=== PATIENT | male | born 1945 | race Caucasian/White ===

== ENCOUNTER 2019-03-25 14:25 | Emergency (ER) | payer MEDICARE, OTHER ==
[2019-03-25] MEDS ORDERED: Sodium Chloride 0.9% 1,000 ML IV SCH (14:45)
--- NOTE | 2019-03-25 14:54 | EDM.PDOC ---
ED HPI GENERAL MEDICAL PROBLEM - General Chief Complaint: General Stated Complaint: found on floor during wellness check Time Seen by Provider: 03/25/19 14:43 Source of Information: Reports: EMS History Limitations: Reports: Altered Mental Status - History of Present Illness INITIAL COMMENTS - FREE TEXT/NARRATIVE: Patient is a 73-year-old who was brought from ambulance apparently he was reported as a missing person says people around him have not seen him for over 2 days he was found in his house laying on the floor unable to move in a very tight space patient was brought in by ambulance complaining of bilateral hip pain he had some skin abrasions on the right hip is to say it lay in the ground with urine patient has follow urine smell Duration: Day(s):, Getting Worse Location: Reports: Head, Lower Extremity, Right Improves with: Reports: Immobilization Worsens with: Reports: Movement Context: Reports: Trauma Associated Symptoms: Reports: Confusion, Weakness - Related Data Allergies Allergy/AdvReac Type Severity Reaction Status Date / Time No Known Allergies Allergy Verified 10/19/16 14:58 ED ROS GENERAL - Review of Systems Review Of Systems: See Below Constitutional: Reports: Weakness HEENT: Reports: No Symptoms Respiratory: Reports: No Symptoms Cardiovascular: Reports: No Symptoms Endocrine: Reports: No Symptoms GI/Abdominal: Reports: No Symptoms : Reports: Incontinence Musculoskeletal: Reports: Leg Pain Skin: Reports: Change in Color (Patient probably down for 3 days he has ecchymosis in the pubic area with right leg swelling and deformity) ED EXAM, GENERAL - Physical Exam Exam: See Below Exam Limited By: Altered Mental Status General Appearance: WD/WN, Lethargic, Mild Distress Eye Exam: Bilateral Eye: PERRL (Pupils about 3 mm) Ears: Normal External Exam, Normal Canal, Hearing Grossly Normal, Normal TMs Nose: Normal Inspection, Normal Mucosa, No Blood Throat/Mouth: Normal Inspection, Normal Lips, Normal Teeth, Normal Gums, Normal Oropharynx, Normal Voice, No Airway Compromise Head: Atraumatic, Normocephalic Neck: Normal Inspection, Supple, Non-Tender, Full Range of Motion (Male) Exam: Scrotal Swelling. No: Normal Inspection (Ecchymosis on the pubic area) Rectal (Males) Exam: Deferred Extremities: Limited Range of Motion (Lower extremities), Other (Right hip skin irritation and sloughing secondary to pressure) Neurological: Disoriented, Memory Loss Recent Events, Other (Right hand drifting right eye weakness and facial weakness) Psychiatric: Normal Mood Skin Exam: Cool, Ecchymosis, Rash Lymphatic: No Adenopathy Course - Orders/Labs/Meds Orders: Active Orders 24 hr Category Date Time Status Hip Min 3V or 4V w Pelvis Bi [CR] Stat Exams 03/25/19 14:39 Ordered CBC WITH AUTO DIFF [HEME] Stat Lab 03/25/19 14:36 Ordered COMPREHENSIVE METABOLIC PN,CMP [CHEM] Stat Lab 03/25/19 14:36 Ordered CREATINE KINASE,CK [CHEM] Stat Lab 03/25/19 14:36 Ordered Sodium Chloride 0.9% [Normal Saline] 1,000 ml Med 03/25/19 14:45 Ordered IV ASDIRECTED Medication Orders Sodium Chloride (Normal Saline) 1,000 mls @ 250 mls/hr IV ASDIRECTED [facility] Meds: Medications Generic Name Dose Route Start Last Admin Trade Name Freq PRN Reason Stop Dose Admin Sodium Chloride 1,000 mls @ 250 mls/hr 03/25/19 14:45 Normal Saline IV ASDIRECTED VÍCTOR Departure - Departure Time of Disposition: 15:51 Disposition: Refer to Observation Condition: Serious Clinical Impression: Fracture, intertrochanteric, right femur, Rhabdomyolysis - Discharge Information *PRESCRIPTION DRUG MONITORING PROGRAM REVIEWED*: No *COPY OF PRESCRIPTION DRUG MONITORING REPORT IN PATIENT RASHMI: No Care Plan Goals: Patient seen in the ER Dr. Anthony and essential called and report given to him about the condition of this patient with rhabdomyolysis he probably was laying down for 3 days confused right facial weakness and drifting of the right side we will go ahead and transfer him to a center. - My Orders Last 24 Hours: My Active Orders 03/25/19 14:36 CBC WITH AUTO DIFF [HEME] Stat COMPREHENSIVE METABOLIC PN,CMP [CHEM] Stat CREATINE KINASE,CK [CHEM] Stat 03/25/19 14:39 Hip Min 3V or 4V w Pelvis Bi [CR] Stat 03/25/19 14:45 Sodium Chloride 0.9% [Normal Saline] 1,000 ml IV ASDIRECTED - Assessment/Plan Last 24 Hours: My Active Orders 03/25/19 14:36 CBC WITH AUTO DIFF [HEME] Stat COMPREHENSIVE METABOLIC PN,CMP [CHEM] Stat CREATINE KINASE,CK [CHEM] Stat 03/25/19 14:39 Hip Min 3V or 4V w Pelvis Bi [CR] Stat 03/25/19 14:45 Sodium Chloride 0.9% [Normal Saline] 1,000 ml IV ASDIRECTED
[2019-03-25 15:21] LABS: CHLORIDE,CL 115 mmol/L (98-107)
[2019-03-25 15:28] LABS: SODIUM,NA 156 mmol/L (136-145)
[2019-03-25 16:10] VITALS: PULSE 81
[2019-03-25 16:11] VITALS: BP 140/87
== END 2019-03-25 16:15 ==
LOC: LL.ED 14:25
DX: S72.141A Displaced intertrochanteric fracture of right femur, initial encounter for closed fracture (principal); T79.6XXA Traumatic ischemia of muscle, initial encounter
CPT/HCPCS: 36415; 51702; 70450; 80053; 81001; 82550; 85025; 96360; 99284; 99285-25; J7030

== ENCOUNTER 2020-12-20 07:18 | Emergency (ER) | payer MEDICARE, OTHER ==
--- NOTE | 2020-12-20 07:33 | EDM.PDOC ---
ED HPI GENERAL MEDICAL PROBLEM - General Chief Complaint: Laceration Stated Complaint: fall, head laceration Time Seen by Provider: 12/20/20 07:30 Source of Information: Reports: Patient, [facility] Records History Limitations: Reports: No Limitations - History of Present Illness INITIAL COMMENTS - FREE TEXT/NARRATIVE: The patient was brought to the emergency room via transport vehicle from [facility] in [place] for evaluation of a right superficial laceration and abrasion after a minor fall at about 5:30 AM this morning. Neurochecks have been stable to this point. Very limited verbal report was provided by the jail, however after review of transfer records the patient appeared to have some mild diaphoresis and dizziness at the time of their initial evaluation. The patient is not certain exactly what happened, however he denies any true syncopal type episode with patient apparently falling after he was getting out of the bed to go to the bathroom this morning. The patient denies any chest pain/pressure, heart flutter, orthostasis, orthopnea, diaphoresis, paresthesias, recent decreased exercise tolerance, or any other anginal-type sym ptoms. No recent history of abdominal pain, heartburn, nausea, diarrhea, melena, gross hematochezia, or any food intolerance, including fatty foods, etc.. He denies any gross hematuria, colic, or the UTI symptoms. The patient also denies any recent fever, cough, wheezing, dyspnea, etc.. No history of recent headaches, visual changes, diplopia, change in mental status, or other change in neurological status. He complains of 12/10 mild right facial discomfort secondary to the above fall. Onset: Today, Sudden Onset Date: 12/20/20 Onset Time: 05:30 Duration: Constant Location: Reports: Face. Denies: Head, Neck, Chest, Abdomen, Back, Pelvis, Upper Extremity, Left, Upper Extremity, Right, Lower Extremity, Left, Lower Extremity, Right, Radiates to Quality: Reports: Ache, Same as Previous Episode Severity: Mild Improves with: Reports: None Worsens with: Reports: None Context: Reports: Trauma (As above). Denies: Sick Contact Associated Symptoms: Reports: Diaphoresis (Per nurses but not at time of arrival). 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: Reports: Other (see below) (None) Right Face/Facial Pain Score (Numeric/FACES): 2 - Related Data Allergies Allergy/AdvReac Type Severity Reaction Status Date / Time No Known Allergies Allergy Verified 12/20/20 07:30 Home Meds: Home Meds Lovastatin 40 mg PO BEDTIME 03/25/19 [History] Pioglitazone [Actos] 30 mg PO DAILY 03/25/19 [History] metFORMIN [Glucophage XR] 1,000 mg PO BIDMEALS 03/25/19 [History] Acetaminophen [Acetaminophen Extra Strength] 500 mg PO ,12/20/20 [History] Aspirin [Aspirin EC] 81 mg PO 79912/20/20 [History] Cyanocobalamin (Vitamin B-12) [B-12] 1,000 [place] 79912/20/20 [History] DULoxetine HCl [Duloxetine HCl] 40 mg PO 79912/20/20 [History] Diclofenac Sodium [Voltaren 1% Gel] 2 gm TOP QID PRN 12/20/20 [History] Docusate Sodium 100 mg PO 12/20/20 [History] Furosemide [Lasix] 20 mg PO 79912/20/20 [History] Magnesium Oxide 420 mg PO 79912/20/20 [History] Melatonin 3 mg PO BEDTIME 12/20/20 [History] Metoprolol Succinate 200 mg PO 79912/20/20 [History] Pantoprazole Sodium [Protonix] 40 mg PO DAILY 12/20/20 [History] Tamsulosin HCl 0.4 mg PO 199912/20/20 [History] bisacodyL [Bisacodyl] 5 - 10 mg PO DAILY PRN 12/20/20 [History] lisinopriL [Lisinopril] 10 mg PO 0812/20/20 [History] Past Medical History HEENT History: Reports: Impaired Vision, Other (See Below). Denies: Allergic Rhinitis, Cataract, Glaucoma, Hard of Hearing, Macular Degeneration, Otitis Media Other HEENT History: Patient wears reading glasses. No diabetic retinopathy. Cardiovascular History: Reports: Afib, Arrhythmia, CAD, Cardiomyopathy, High Cholesterol, Hypertension, Other (See Below). Denies: Aneurysm, Blood Clots/VTE/DVT, Heart Failure, FL, PVD, Syncope Other Cardiovascular History: Severe left atrial enlargement with moderate left ventricular hypertrophy and borderline decreased cardiac function with diastolic function unable to be assessed by echocardiogram in September 2020 as below. PACs and first-degree AV block. Respiratory History: Reports: Intubation, Previous, Other (See Below). Denies: Asthma, Bronchitis, Recurrent, COPD, PE, Pneumonia, Recurrent, Pneumothorax, Sleep Apnea, TB Other Respiratory History: Right rib fractures #4 through 8 on 01/24/2017. Left rib fractures #7-9 on 08/07/2017. Left rib fractures 4, and 7 through 10. Gastrointestinal History: Reports: Cholelithiasis, Chronic Constipation, GERD, Other (See Below). Denies: Celiac Disease, Colon Polyp, Diverticulosis, Fecal Incontinence, Gastritis, GI Bleed, Hepatitis, Helicobacter Pylori, Inflammatory Bowel Disease, Irritable Bowel Syndrome, Jaundice, Pancreatitis, PUD Other Gastrointestinal History: Nonsymptomatic cholelithiasis. Esophagitis without Jean's disease. Umbilical hernia Genitourinary History: Reports: BPH, Prostate Disorder, Renal Calculus, Urinary Incontinence, Other (See Below). Denies: Acute Renal Failure, Chronic Renal Insuffiency, Diabetic Nephropathy, Hydronephrosis, STD, UTI, Recurrent Other Genitourinary History: Right-sided nephrolithiasis without urolithiasis by CT scan in May 2020. Musculoskeletal History: Reports: Arthritis, Back Pain, Chronic, Fracture, Neck Pain, Chronic, Osteoarthritis, Other (See Below). Denies: Gout, RA, SLE Other Musculoskeletal History: Chondromalacia of the left knee. Bilateral rib fractures as above. Comminuted intratrochanteric right hip fracture on 03/25/2019 with secondary rhabdomyolysis after patient was not found for 2 days. Left tibial plateau fracture with concomitant lateral meniscal tear in about 1970. 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 Left partial biceps tendon rupture on 06/18/2006. 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 Neurological History: Reports: CVA (Possible left frontoparietal CVA and lacunar infarct by CT scan.), TIA, Other (See Below). Denies: Cerebral Aneurysms, Concussion, Head Trauma, MS, Neuropathy, Diabetic, Neuropathy, Peripheral, Parkinson's, Seizure, Vertigo Other Neuro History: Recurrent falls with current walker use. Psychiatric History: Reports: Anxiety, Depression. Denies: Abuse, Victim of, ADD, ADHD, Addiction, Psych Hospitalization(s), Suicide Attempt, Suicidal Ideation Endocrine/Metabolic History: Reports: Diabetes, Type II, Hypomagnesemia, Obesity/BMI 30+. Denies: Diabetes Mellitus, Type 3c, Hypothyroidism, IDDM Hematologic History: Reports: Anemia, B12 Deficiency. Denies: Blood Transfusion(s) Immunologic History: Reports: None. Denies: AIDS, HIV, SLE Oncologic (Cancer) History: Reports: None. Denies: Basal Cell Carcinoma, Colon, Esophageal, Hodgkin's Lymphoma, Leukemia, Lung, Lymphoma, Malignant Melanoma, Non-Hodgkin's Lymphoma, Prostate, Squamous Cell Carcinoma Dermatologic History: Denies: Eczema, Psoriasis - Infectious Disease History Infectious Disease History: Reports: Chicken Pox, Mumps, Novel Coronavirus (Early 2020. Subsequent Moderna x2 in 2020), Rheumatic Fever (Age 14). Denies: C-Difficile, Measles, Meningitis, Mononucleosis, MRSA, Pertussis (Whooping Cough), Rubella, Scarlet Fever, Shingles, TB, VRE - Past Surgical History Head Surgeries/Procedures: Reports: None HEENT Surgical History: Reports: Oral Surgery, Other (See Below). Denies: Adenoidectomy, Cataract Surgery, Eye Surgery, LASIK, Myringotomy w Tube(s), Naso-Sinus Surgery, Tonsillectomy Other HEENT Surgeries/Procedures: Complete teeth extraction with complete dentur es uppers and lowers. Cardiovascular Surgical History: Reports: None. Denies: Varicose Respiratory Surgical History: Reports: None. Denies: Thoracentesis GI Surgical History: Reports: Appendectomy, Cholecystectomy, Colonoscopy, EGD, Other (See Below). Denies: Hernia, Abdominal, Hernia, Inguinal, Hernia Repair/Other, Polypectomy Other GI Surgeries/Procedures: EGD with biopsy with additional colonoscopy on 07/13/2011. Appendectomy secondary to ruptured appendix in May 1965. Male Surgical History: Reports: None. Denies: Circumcision, TURP- Transurethral Resection of Prostate, Vasectomy Endocrine Surgical History: Reports: None. Denies: Thyroid Biopsy Neurological Surgical History: Reports: None. Denies: C-Spine, Discectomy, Laminectomy, Lumbar Spine, Sacral Spine, Spinal Fusion, Thoracic Spine, Vertebroplasty Musculoskeletal Surgical History: Reports: Arthroscopic Knee, Arthroscopic Procedure, ORIF, Other (See Below). Denies: Carpal Tunnel, Ganglion Cyst, Hip Replacement, Joint Replacement, Shoulder Surgery Other Musculoskeletal Surgeries/Procedures:: ORIF/nail fixation of the left hip in March 2019.? Left knee arthroscopic lateral meniscal repair on 05/07/1997. Oncologic Surgical History: Reports: None Dermatological Surgical History: Reports: None - Past Imaging History Past Imaging History: Reports: Cardiac Echo (10/05/2020 with ejection fraction of 45-55% and otherwise findings as above.), CAT Scan (Abdomen 06/04/2020. Head on 03/25/2019.) Social & Family History - Family History HEENT: Denies: Glaucoma, Macular Degeneration, Retinal Detachment Cardiac: Reports: CAD, Hypertension, FL, Other (See Below). Denies: Afib, Aneurysm, Arrhythmia, Blood Clots/VTE/DVT, Heart Failure, Heart Murmur, High Cholesterol, Syncope Other Cardiac Family History: Coronary artery disease in paternal aunt in her 70s and paternal uncle in his 60s with fatal FL in his 70s. Hypertension in brothers x6. Respiratory: Reports: COPD, Other (See Below). Denies: Asthma, PE, Pneumothorax, Sleep Apnea Other Respiratory Family Hisory: Paternal uncle with fatal COPD at age 65 with history of tobacco abuse. GI: Reports: None. Denies: Celiac Disease, Cholelithiasis, Colon Polyps, GERD, Inflammatory Bowel Disease, Irritable Bowel Syndrome, PUD : Reports: None. Denies: Renal Calculus, Renal Disease/Insufficiency OBGYN: Reports: None. Denies: Endometriosis, Recurrent Spontaneous Musculoskeletal: Reports: None. Denies: Gout, RA, SLE Neurological: Reports: CVA, Other (See Below). Denies: Alzheimers Disease, Dementia, Migraines, MS, Parkinson's, Seizure, TIA Other Neurological Family History: Father with fatal CVA at age 50 with initial CVA at age 45. Psychiatric: Reports: None. Denies: Abuse, Victim of, ADD, ADHD, Anxiety, Depression, Psych Hospitalization(s), PTSD, Suicide Attempt Endocrine/Metabolic: Reports: None. Denies: Diabetes, Type I, Diabetes, type II, Diabetes Mellitus, Type 3c, Hypothyroidism, IDDM Hematologic: Reports: None. Denies: Anemia, SLE Immunologic: Reports: None. Denies: AIDS, HIV, SLE Dermatologic: Denies: Eczema, Psoriasis Oncologic: Reports: Brain, Esophageal, Other (See Below). Denies: Colon, Hodgkin's Lymphoma, Leukemia, Lymphoma, Non-Hodgkin's Lymphoma, Prostate, Skin Other Oncologic Family History: Mother with fatal brain cancer at age 74. Paternal uncle with fatal throat cancer in his 60s with history of tobacco use. - Tobacco Use Tobacco Use Status *Q: Never Tobacco User Used Tobacco, but Quit: No Smoking Cessation Information Provided To Patient: No Second Hand Smoke Exposure: No Second Hand Smoke Education Provided: No - Caffeine Use Caffeine Use: Reports: Coffee (4-5 cups/day), Soda (1 soda per day). Denies: Energy Drinks, Tea - Alcohol Use Alcohol Use History: Yes Days Per Week of Alcohol Use: 0 Number of Drinks Per Day: 0 Number of Drinks Per Day Comment: No previous DWIs, problems with alcohol abuse, etc. 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 ED EXAM, SKIN/RASH Exam: See Below Exam Limited By: No Limitations General Appearance: Alert, WD/WN, No Apparent Distress Eye Exam: Bilateral Eye: EOMI, Normal Fundi, Normal Inspection (No glasses today. No vertigo or nystagmus), PERRL Ears: Normal External Exam, Normal Canal, Hearing Grossly Normal, Normal TMs Nose: Normal Inspection, Normal Mucosa, No Blood Throat/Mouth: Normal Inspection, Normal Lips, Normal Gums, Normal Oropharynx, Normal Voice, No Airway Compromise. No: Normal Teeth (Complete dentures uppers and lowers), Dysphagia, Perioral Cyanosis Head: Facial Swelling (As below), Facial Tenderness (Minimal over right superficial laceration and superior right cheek region with minimal swelling and ecchymosis in that area but no deformity, crepitation, or sign of fracture), Other (2 cm superficial laceration over the right eyebrow with no periorbital ecchymosis, etc. 3-4 cm area of superficial abrasion over the right cheek.) Neck: Supple, Non-Tender, Full Range of Motion, Carotid Bruit (Mild bilateral). No: Lymphadenopathy (L), Lymphadenopathy (R), Tender Lateral, Tender Midline, Thyromegaly Respiratory/Chest: No Respiratory Distress, Normal Breath Sounds, No Accessory Muscle Use, Chest Non-Tender, Rales (Mild bilateral basilar). No: Rhonchi, Wheezing, Pleural Rub, Retractions Cardiovascular: Normal Peripheral Pulses, No Edema, No JVD, No Murmur, No Rub, Irregularly Irregular. No: Gallop/S3, Gallop/S4 Peripheral Pulses: 2+: Radial (L), Radial (R), Dorsalis Pedis (L), Dorsalis Pedis (R) GI/Abdominal: Normal Bowel Sounds, Soft, Non-Tender, No Organomegaly, No Distention, No Abnormal Bruit, No Mass, Pelvis Stable, Other (Obese). No: Guarding (Male) Exam: Deferred Rectal (Males) Exam: Deferred Back Exam: Normal Inspection, Full Range of Motion. No: CVA Tenderness (L), CVA Tenderness (R), Muscle Spasm Extremities: Normal Inspection, Non-Tender, No Pedal Edema, Normal Capillary Refill, Limited Range of Motion (Stable chronic decreased range of motion of the shoulders bilaterally). No: Normal Range of Motion, Sergey's Sign Neurological: Alert, Oriented, CN II-XII Intact, Normal Cognition, Normal Gait (with walker), Normal Reflexes (Negative Babinski's, finger to nose, and pronator rotation tests. No evidence of facial paresis, tongue deviation, orthostasis, etc.. Excellent reverse thought processes.), No Motor/Sensory Deficits, Other ( No clinical orthostasis) Psychiatric: Normal Affect, Normal Mood Skin: No Rash, Ecchymosis (Minimal as above), Wound/Incision (Superficial as above). No: Diaphoretic Location, Skin: Face Characteristics: Other (As above) Associated features: Tenderness (As above) Lymphatic: No Adenopathy #1 Interpretation EKG Date: 12/20/20 Time: 08:22 Rhythm: A-Fib Rate (Beats/Min): 99 [place]: Normal (Left) P-Wave: Variable QRS: Normal (0.08 seconds) ST-T: Other (T wave inversions in leads V4V6) QT: Normal ME/PQ Interval: Variable. Extreme poor R wave progression in the anterior leads. Comparison: NA - No Prior EKG (No recent EKG for comparison) EKG Interpretation Comments: 1. Lateral wall cardiac ischemia 2. Atrial fibrillation Course - Vital Signs Last Recorded V/S: Last Vital Signs Temp 36.1 C 12/20/20 10:30 Pulse 97 12/20/20 11:09 Resp 18 12/20/20 10:45 BP 152/91 H 12/20/20 11:09 Pulse Ox 97 12/20/20 10:45 Vital Signs - 24 hr 12/20/20 12/20/20 12/20/20 07:20 07:30 07:45 Temperature [ 36.4 C Temporal] Pulse, Peripheral Pulse, 87 91 93 Peripheral [ Right Pulse Oximetry] Respiratory 21 H 20 21 H Rate Blood Pressure Blood Pressure 157/88 H 147/90 H 152/91 H [Left Upper Arm ] O2 Sat by Pulse 98 97 96 Oximetry 12/20/20 12/20/20 12/20/20 08:00 08:15 08:45 Temperature [ Temporal] Pulse, Peripheral Pulse, 92 92 89 Peripheral [ Right Pulse Oximetry] Respiratory 20 22 H 18 Rate Blood Pressure Blood Pressure 160/91 H 162/97 H 151/68 H [Left Upper Arm ] O2 Sat by Pulse 96 96 95 Oximetry 12/20/20 12/20/20 12/20/20 09:00 09:10 09:30 Temperature [ 35.8 C L Temporal] Pulse, Peripheral Pulse, 93 89 99 Peripheral [ Right Pulse Oximetry] Respiratory 21 H 19 24 H Rate Blood Pressure Blood Pressure 153/79 H 145/96 H 168/102 H [Left Upper Arm ] O2 Sat by Pulse 96 95 96 Oximetry 12/20/20 12/20/20 12/20/20 09:45 10:00 10:30 Temperature [ 36.1 C Temporal] Pulse, Peripheral Pulse, 94 92 118 H Peripheral [ Right Pulse Oximetry] Respiratory 24 H 20 24 H Rate Blood Pressure Blood Pressure 161/103 H 163/90 H 154/96 H [Left Upper Arm ] O2 Sat by Pulse 97 95 97 Oximetry 12/20/20 12/20/20 10:45 11:09 Temperature [ Temporal] Pulse, 97 Peripheral Pulse, 89 Peripheral [ Right Pulse Oximetry] Respiratory 18 Rate Blood Pressure 152/91 H Blood Pressure 152/91 H [Left Upper Arm ] O2 Sat by Pulse 97 Oximetry - Orders/Labs/Meds Orders: Active Orders 24 hr Category Date Time Status Blood Glucose Check, Bedside [RC] STAT Care 12/20/20 07:58 Active Cardiac Monitoring [RC] . DIRECTED Care 12/20/20 07:30 Active EKG Documentation Completion [RC] ASDIRECTED Care 12/20/20 08:09 Active Oxygen Therapy, ED [RC] PRN Care 12/20/20 08:09 Active Peripheral IV Care [RC] . DIRECTED Care 12/20/20 08:09 Active Pulse Oximetry [RC] CONTINUOUS Care 12/20/20 08:09 Active Up With Assistance [RC] PFP Care 12/20/20 08:09 Active Vital Signs [RC] PFP Care 12/20/20 08:09 Active Nothing per Oral Now Diet [DIET] Diet 12/20/20 Breakfast Active Chest 1V Frontal [CR] Stat Exams 12/20/20 08:09 Taken Metoprolol Succinate [Toprol XL] Med 12/20/20 18:00 Active 200 mg PO QPM Sodium Chloride 0.9% [Saline Flush] Med 12/20/20 08:09 Active 10 ml FLUSH ASDIRECTED PRN Obtain Past Medical Record [OM.PC] Routine Oth 12/20/20 07:33 Active Peripheral IV Insertion Adult [OM.PC] Stat Oth 12/20/20 08:09 Ordered Resuscitation Status Stat Resus Stat 12/20/20 08:09 Ordered Medication Orders Metoprolol Succinate (Metoprolol Succinate 25 Mg Tab.Er) 200 mg PO QPM VÍCTOR Sodium Chloride (Sodium Chloride 0.9% 10 Ml Syringe) 10 ml FLUSH ASDIRECTED PRN PRN Reason: Keep Vein Open Last Admin: 12/20/20 11:05 Dose: 10 ml Documented by: Admin: 12/20/20 09:12 Dose: 10 ml Documented by: Admin: 12/20/20 08:24 Dose: 10 ml Documented by: RUDY Labs: Laboratory Tests 12/20/20 12/20/20 12/20/20 Range/Units 08:08 08:20 08:20 WBC 6.5 (4.0-10.2) K/uL RBC 3.72 L (4.33-5.41) M/uL Hgb 11.8 L (13.1-16.8) g/dL Hct 35.9 L (39.0-49.0) % MCV 96.5 (84.0-98.0) fL MCH 31.7 (28.2-33.3) pg MCHC 32.9 (31.7-36.0) g/dL RDW 15.9 H (11.2-14.1) % Plt Count 160 (150-350) K/uL Neut % (Auto) 64.1 (45.0-80.0) % Lymph % (Auto) 20.3 (10.0-50.0) % [place] % (Auto) 13.2 (2.0-14.0) % Eos % (Auto) 2.2 (0.0-5.0) % Baso % (Auto) 0.2 (0.0-2.0) % Neut # (Auto) 4.14 (1.40-7.00) K/uL Lymph # (Auto) 1.31 (0.50-3.50) K/uL [place] # (Auto) 0.85 (0.00-1.00) K/uL Eos # (Auto) 0.14 (0.00-0.50) K/uL Baso # (Auto) 0.01 (0.00-0.20) K/uL PT 10.3 (9.5-12.0) SEC INR 1.0 APTT 19.2 L (24.5-32.8) SEC D-Dimer, Quantitative (0-400) ng/mL Sodium (136-145) mmol/L Potassium (3.5-5.1) mmol/L Chloride (98-107) mmol/L Carbon Dioxide (21.0-32.0) mmol/L BUN (7-18) mg/dL Creatinine (0.51-1.17) mg/dL Est Cr Clr Drug Dosing mL/min Estimated GFR (MDRD) mL/min Glucose (70-99) mg/dL POC Glucose 127 H (70-99) mg/dL Lactic Acid (0.4-2.0) mmol/L Uric Acid (2.6-7.2) mg/dL Calcium (8.5-10.1) mg/dL Magnesium (1.8-2.4) mg/dL Total Bilirubin (0.2-1.0) mg/dL AST (15-37) U/L ALT (12-78) U/L Alkaline Phosphatase (46-116) IU/L Troponin I (0.000-0.056) ng/mL NT-Pro-B Natriuret Pep (0-125) pg/mL Total Protein (6.4-8.2) g/dL Albumin (3.4-5.0) g/dL TSH, Ultra Sensitive (0.358-3.740) mIU/mL 12/20/20 12/20/20 12/20/20 Range/Units 08:20 08:20 08:20 WBC (4.0-10.2) K/uL RBC (4.33-5.41) M/uL Hgb (13.1-16.8) g/dL Hct (39.0-49.0) % MCV (84.0-98.0) fL MCH (28.2-33.3) pg MCHC (31.7-36.0) g/dL RDW (11.2-14.1) % Plt Count (150-350) K/uL Neut % (Auto) (45.0-80.0) % Lymph % (Auto) (10.0-50.0) % [place] % (Auto) (2.0-14.0) % Eos % (Auto) (0.0-5.0) % Baso % (Auto) (0.0-2.0) % Neut # (Auto) (1.40-7.00) K/uL Lymph # (Auto) (0.50-3.50) K/uL [place] # (Auto) (0.00-1.00) K/uL Eos # (Auto) (0.00-0.50) K/uL Baso # (Auto) (0.00-0.20) K/uL PT (9.5-12.0) SEC INR APTT (24.5-32.8) SEC D-Dimer, Quantitative 418 H (0-400) ng/mL Sodium 143 (136-145) mmol/L Potassium 4.7 (3.5-5.1) mmol/L Chloride 104 (98-107) mmol/L Carbon Dioxide 30.8 (21.0-32.0) mmol/L BUN 20 H (7-18) mg/dL Creatinine 0.86 (0.51-1.17) mg/dL Est Cr Clr Drug Dosing 63.57 mL/min Estimated GFR (MDRD) > 60 mL/min Glucose 144 H (70-99) mg/dL POC Glucose (70-99) mg/dL Lactic Acid 1.2 (0.4-2.0) mmol/L Uric Acid 5.1 (2.6-7.2) mg/dL Calcium 9.1 (8.5-10.1) mg/dL Magnesium 1.9 (1.8-2.4) mg/dL Total Bilirubin 0.4 (0.2-1.0) mg/dL AST 20 (15-37) U/L ALT 28 (12-78) U/L Alkaline Phosphatase 70 (46-116) IU/L Troponin I 0.004 (0.000-0.056) ng/mL NT-Pro-B Natriuret Pep 1838 H (0-125) pg/mL Total Protein 6.8 (6.4-8.2) g/dL Albumin 3.6 (3.4-5.0) g/dL TSH, Ultra Sensitive 1.116 (0.358-3.740) mIU/mL Meds: Medications Generic Name Dose Route Start Last Admin Trade Name Freq PRN Reason Stop Dose Admin Metoprolol Succinate 200 mg 12/20/20 18:00 Metoprolol Succinate 25 Mg Tab.Er PO QPM VÍCTOR Sodium Chloride 10 ml 12/20/20 08:09 12/20/20 11:05 Sodium Chloride 0.9% 10 Ml Syringe FLUSH 10 ml ASDIRECTED PRN Administration Keep Vein Open Discontinued Medications Generic Name Dose Route Start Last Admin Trade Name Freq PRN Reason Stop Dose Admin Famotidine 40 mg 12/20/20 08:09 12/20/20 08:23 Famotidine 20 Mg/2 Ml Sdv IVPUSH 12/20/20 08:10 40 mg ONETIME ONE Administration Furosemide 60 mg 12/20/20 09:08 12/20/20 09:12 Furosemide 40 Mg/4 Ml Vial IVPUSH 12/20/20 09:09 60 mg NOW ONE Administration Metoprolol Tartrate 2.5 mg 12/20/20 10:37 12/20/20 11:09 Metoprolol Tartrate 5 Mg/5 Ml Sdv IVPUSH 12/20/20 10:38 2.5 mg ONETIME ONE Administration Neomycin/Polymyxin/Bacitracin 1 each 12/20/20 07:34 12/20/20 07:49 Bacitracin/Neomycin/Polymyxin B Oint 0.9 Gm U/D Packet TOP 12/20/20 07:35 1 each ONETIME ONE Administration Ticagrelor 180 mg 12/20/20 08:09 12/20/20 08:34 Ticagrelor 90 Mg Tab PO 12/20/20 08:10 Not Given ONETIME ONE - Radiology Interpretation Free Text/Narrative:: 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 Note tachycardia in the 140-160s with minimal exertion, including using the urinal at bedside. Chest x-ray, portable, shows a moderately elevated right hemidiaphragm with moderate COPD changes and probable pulmonary hypertension and/or mild centralized CHF. Moderate cardiomegaly with moderate aortic valve calcification . Bilateral old rib fractures. No pneumothorax. Official x-ray report does not show any significant CHF or indicated cardiomegaly, however this does not agree with my evaluation and/or previous medical records including echocardiogram showing moderate cardiomegaly. Departure - Departure Time of Disposition: 11:10 Disposition: DC/Tfer to Acute Hospital 02 Condition: Good Clinical Impression: Laceration, Peptic reflux disease, Parkinsons disease, Need for comfort care, D-dimer, elevated Contusion Qualifiers: Encounter type: initial encounter Contusion area: head Contusion of head detail: periocular area Laterality: right Qualified Code(s): S00.11XA - Contusion of right eyelid and periocular area, initial encounter Diabetes mellitus Qualifiers: Diabetes mellitus type: type 2 Diabetes mellitus exterminator helper insulin use: without retirement use Diabetes mellitus complication status: without complication Qualified Code(s): E11.9 - Type 2 diabetes mellitus without complications Atrial fibrillation Qualifiers: Atrial fibrillation type: longstanding persistent Qualified Code(s): I48.11 - Longstanding persistent atrial fibrillation Coronary artery disease Qualifiers: Coronary Disease-Associated Artery/Lesion type: [place] artery [place] vs. transplanted heart: [place] heart Associated angina: without angina Qualified Code(s): I25.10 - Atherosclerotic heart disease of [place] coronary artery without angina pectoris Hypertension Qualifiers: Hypertension type: essential hypertension Qualified Code(s): I10 - Essential (primary) hypertension Osteoarthritis Qualifiers: Osteoarthritis location: multiple joints Osteoarthritis type: primary Qualified Code(s): M89.49 - Other hypertrophic osteoarthropathy, multiple sites Anemia Qualifiers: Anemia type: B12 deficiency Vitamin B12 deficiency anemia type: other B12 deficiency Qualified Code(s): D51.8 - Other vitamin B12 deficiency anemias CHF (congestive heart failure) Qualifiers: Heart failure type: unspecified Heart failure chronicity: acute on chronic Qualified Code(s): I50.9 - Heart failure, unspecified - Discharge Information *PRESCRIPTION DRUG MONITORING PROGRAM REVIEWED*: Not Applicable *COPY OF PRESCRIPTION DRUG MONITORING REPORT IN PATIENT RASHMI: Not Applicable Referrals: Dione Parmar PA [Primary Care Provider] - Forms: ED Department Discharge, Interfacility Transfer [facility] Sepsis Event Note (ED) - Evaluation Sepsis Screening Result: No Definite Risk - Focused Exam Vital Signs: Vital Signs Temp Pulse Pulse Resp BP BP Pulse Ox 12/20/20 11:09 97 152/91 H 12/20/20 10:45 89 18 152/91 H 97 12/20/20 10:30 36.1 C 118 H 24 H 154/96 H 97 12/20/20 10:00 92 20 163/90 H 95 12/20/20 09:45 94 24 H 161/103 H 97 12/20/20 09:30 99 24 H 168/102 H 96 12/20/20 09:10 35.8 C L 89 19 145/96 H 95 12/20/20 09:00 93 21 H 153/79 H 96 12/20/20 08:45 89 18 151/68 H 95 12/20/20 08:15 92 22 H 162/97 H 96 12/20/20 08:00 92 20 160/91 H 96 12/20/20 07:45 93 21 H 152/91 H 96 12/20/20 07:30 91 20 147/90 H 97 12/20/20 07:20 36.4 C 87 21 H 157/88 H 98 - Problem List & Annotations (1) CHF (congestive heart failure) SNOMED Code(s): 46068139 Code(s): I50.9 - HEART FAILURE, UNSPECIFIED Status: Acute Priority: High Current Visit: Yes Onset Date: 12/20/20 Annotation/Comment:: Initial telephone consultations with the [facility] at 9:05 AM and 9:15 AM. Subsequent telephone consultation at 9:[address] Sprague, hospitalist at the [facility], who initially refused transfer and did not feel that the patient warranted placement in observation status in their facility. Note unclear history of initial etiology of patient's fall with possibility of cardiac arrhythmia, current mild CHF by clinical exam and my interpretation of his chest x-ray with moderate BNP elevation., In addition note lateral wall cardiac ischemia by today's EKG. Subsequent additional telephone consultation with the [facility] at 10:10 AM and 10:15 AM with the hospice care transitions coordinator eventually agreeing to reevaluate the patient in their emergency room. I do feel placement in observation status is warranted despite the patient's NO CODE STATUS, etc. for further evaluation of his arrhythmia, coronary artery disease, etc. as below. Clinical exam and vital signs were stable at time of transfer with ambulance transfer by means of wiping rag washer accompaniment. IV Lasix initiated in the emergency room. Note recent echocardiogram on 10/05/2020. The patient has yet to take his morning medications with A. fib with rapid ventricular response in the 160s with brief exertion, including using a urinal at bedside at the end of his emergency room care. IV Lopressor and patient's normal 200 mg dose of Toprol-XL given prior to his transfer. Qualifiers: Heart failure type: unspecified Heart failure chronicity: acute on chronic Qualified Code(s): I50.9 - Heart failure, unspecified (2) Coronary artery disease SNOMED Code(s): 99663008 Code(s): I25.10 - ATHSCL HEART DISEASE OF [place] CORONARY ARTERY W/O ANG PCTRS Status: Chronic Priority: High Current Visit: Yes Annotation/Comment:: Lateral wall cardiac ischemia by today's EKG, however no anginal complaints with chest pain protocol not initiated. No ASA, Brilinta, or Lovenox therapy secondary to his recent head injury and absence of true anginal complaints. Secondary to vague history of possible mild dizziness and tisha phoresis noted by the nurses per transfer records cardiac labs, etc. were conducted. Note comfort care status. Standard rule out [place] orders advisable as above. Qualifiers: Coronary Disease-Associated Artery/Lesion type: [place] artery [place] vs. transplanted heart: [place] heart Associated angina: without angina Qualified Code(s): I25.10 - Atherosclerotic heart disease of [place] coronary artery without angina pectoris (3) D-dimer, elevated SNOMED Code(s): 475000589 Code(s): R79.89 - OTHER SPECIFIED ABNORMAL FINDINGS OF BLOOD CHEMISTRY Status: Acute Priority: High Current Visit: Yes Onset Date: 12/20/20 Annotation/Comment:: No clinical evidence of PE or DVT. CT scan is not a vailable in our facility at this time secondary to equipment malfunction. CTA of the chest and/or venous Doppler studies of the lower extremities advisable depending on his clinical course. (4) Laceration SNOMED Code(s): 531212099 Code(s): XJM9745 - Status: Acute Priority: High Current Visit: Yes Onset Date: 12/20/20 Annotation/Comment:: Superficial laceration over the right eyebrow not amenable to repair. Last TDAP on 02/21/2013, which was confirmed by the ER nurse. Neosporin dressing placed. (5) Contusion SNOMED Code(s): 005496169 Code(s): T14.8XXA - OTHER INJURY OF UNSPECIFIED BODY REGION, INITIAL ENCOUNTER Status: Acute Priority: High Current Visit: Yes Onset Date: 12/20/20 Annotation/Comment:: Minor right head and right cheek contusion with no evidence of significant injury. Head precautions advisable per standard protocol. No neurological deficits with CT scan of the head and/or facial region depending on his clinical course. CT scan not available in our facility at this time secondary to equipment malfunction. Qualifiers: Encounter type: initial encounter Contusion area: head Contusion of head detail: periocular area Laterality: right Qualified Code(s): S00.11XA - Contusion of right eyelid and periocular area, initial encounter (6) Parkinsons disease SNOMED Code(s): 85834673 Code(s): G20 - PARKINSON'S DISEASE Status: Acute Priority: Medium Current Visit: Yes Onset Date: 12/20/20 Annotation/Comment:: Note mild resting tremor, rigidity, and cogwheeling today with possible Parkinson's disease. Note history of recurrent falls. (7) Atrial fibrillation SNOMED Code(s): 68603455 Code(s): I48.91 - UNSPECIFIED ATRIAL FIBRILLATION Status: Chronic Priority: Medium Current Visit: Yes Annotation/Comment:: The patient has had not had his medication just this morning. No current anticoagulation therapy secondary to his history of recurrent falls. Qualifiers: Atrial fibrillation type: longstanding persistent Qualified Code(s): I48.11 - Longstanding persistent atrial fibrillation (8) Diabetes mellitus SNOMED Code(s): 71192185 Code(s): E11.9 - TYPE 2 DIABETES MELLITUS WITHOUT COMPLICATIONS Status: Chronic Priority: Medium Current Visit: Yes Annotation/Comment:: Stat Accu-Chek of 127 mg percent with no evidence of hypoglycemia. Continue close follow-up by his regular provider. Qualifiers: Diabetes mellitus type: type 2 Diabetes mellitus retirement insulin use: without exterminator helper use Diabetes mellitus complication status: without complication Qualified Code(s): E11.9 - Type 2 diabetes mellitus without complications (9) Hypertension SNOMED Code(s): 80668981 Code(s): I10 - ESSENTIAL (PRIMARY) HYPERTENSION Status: Chronic Priority: Medium Current Visit: Yes Annotation/Comment:: Somewhat elevated in the emergency room. Continue to observe closely by accepting providers, jail staff and his regular providers. IV Lasix, IV Lopressor, and oral Toprol- XL given as above. Qualifiers: Hypertension type: essential hypertension Qualified Code(s): I10 - Essential (primary) hypertension (10) Osteoarthritis SNOMED Code(s): 948650767 Code(s): M19.90 - UNSPECIFIED OSTEOARTHRITIS, UNSPECIFIED SITE Status: Chronic Priority: Medium Current Visit: Yes Annotation/Comment:: Otherwise stable by history with no evidence of other injuries or complaints. Qualifiers: Osteoarthritis location: multiple joints Osteoarthritis type: primary Qualified Code(s): M89.49 - Other hypertrophic osteoarthropathy, multiple sites (11) Peptic reflux disease SNOMED Code(s): 462308249 Code(s): K21.9 - GASTRO-ESOPHAGEAL REFLUX DISEASE WITHOUT ESOPHAGITIS Status: Chronic Priority: Medium Current Visit: Yes Annotation/Comment:: Stable by history with no evidence of acute GI bleed. High-dose IV Pepcid given as GI prophylaxis. (12) Anemia SNOMED Code(s): 165444189 Code(s): D64.9 - ANEMIA, UNSPECIFIED Status: Chronic Priority: Medium Current Visit: Yes Annotation/Comment:: History of vitamin B12 deficiency. Chronic anemia based on review of medical records. No evidence acute bleeding, etc. Qualifiers: Anemia type: B12 deficiency Vitamin B12 deficiency anemia type: other B12 deficiency Qualified Code(s): D51.8 - Other vitamin B12 deficiency anemias (13) Need for comfort care SNOMED Code(s): 390180701, 533575681 Code(s): RVE8331 - Status: Chronic Priority: Medium Current Visit: Yes Annotation/Comment:: NO CODE STATUS/comfort care confirmed with the patient today - Problem List Review Problem List Initiated/Reviewed/Updated: Yes - My Orders Last 24 Hours: My Active Orders 12/20/20 07:30 Cardiac Monitoring [RC] . DIRECTED Nothing per Oral Now Diet [DIET] 12/20/20 07:33 Obtain Past Medical Record [OM.PC] Routine 12/20/20 07:58 Blood Glucose Check, Bedside [RC] STAT 12/20/20 08:09 EKG Documentation Completion [RC] ASDIRECTED Oxygen Therapy, ED [RC] PRN Peripheral IV Care [RC] . DIRECTED Pulse Oximetry [RC] CONTINUOUS Up With Assistance [RC] PFP Vital Signs [RC] PFP Chest 1V Frontal [CR] Stat Sodium Chloride 0.9% [Saline Flush] 10 ml FLUSH ASDIRECTED PRN Peripheral IV Insertion Adult [OM.PC] Stat Resuscitation Status Stat 12/20/20 18:00 Metoprolol Succinate [Toprol XL] 200 mg PO QPM - Assessment/Plan Last 24 Hours: My Active Orders 12/20/20 07:30 Cardiac Monitoring [RC] . DIRECTED Nothing per Oral Now Diet [DIET] 12/20/20 07:33 Obtain Past Medical Record [OM.PC] Routine 12/20/20 07:58 Blood Glucose Check, Bedside [RC] STAT 12/20/20 08:09 EKG Documentation Completion [RC] ASDIRECTED Oxygen Therapy, ED [RC] PRN Peripheral IV Care [RC] . DIRECTED Pulse Oximetry [RC] CONTINUOUS Up With Assistance [RC] PFP Vital Signs [RC] PFP Chest 1V Frontal [CR] Stat Sodium Chloride 0.9% [Saline Flush] 10 ml FLUSH ASDIRECTED PRN Peripheral IV Insertion Adult [OM.PC] Stat Resuscitation Status Stat 12/20/20 18:00 Metoprolol Succinate [Toprol XL] 200 mg PO QPM Assessment:: As above Plan: As above. Extensive precautions were given to the patient, who is in agreement with the treatment plan. See Patient Instructions for further treatment and plan.
[2020-12-20] MEDS ORDERED: Bacitracin/Neomycin/Polymyxin B Oint 0.9 GM U/D Packet TOP ONE (07:34)
[2020-12-20] MEDS ORDERED: Ticagrelor 90 MG Tab PO ONE (08:09)
[2020-12-20] MEDS ORDERED: Famotidine 20 MG/2 ML SDV IVPUSH ONE (08:09)
[2020-12-20] MEDS: Sodium Chloride 0.9% 10 ML Syringe FLUSH PRN ×3 (08:24→11:05)
[2020-12-20 08:42] LABS: PTT,PARTIAL THROMBOPLSTIN TIME 19.2 SEC (24.5-32.8)
[2020-12-20 08:49] LABS: CHLORIDE,CL 104 mmol/L (98-107); SODIUM,NA 143 mmol/L (136-145)
[2020-12-20] MEDS ORDERED: Furosemide 40 MG/4 ML VIAL IVPUSH ONE (09:08)
[2020-12-20] MEDS ORDERED: Metoprolol Tartrate 5 MG/5 ML SDV IVPUSH ONE (10:37)
[2020-12-20 11:46] VITALS: BP 152/91; PULSE 89
[2020-12-20] MEDS ORDERED: Metoprolol Succinate 25 MG Tab.ER PO SCH (18:00)
== END 2020-12-20 11:10 ==
LOC: LL.ED 07:18
DX: S01.111A Laceration without foreign body of right eyelid and periocular area, initial encounter (principal); I25.10 Atherosclerotic heart disease of native coronary artery without angina pectoris; I48.11 Longstanding persistent atrial fibrillation; E11.9 Type 2 diabetes mellitus without complications; G20 Parkinson's disease; K27.9 Peptic ulcer, site unspecified, unspecified as acute or chronic, without hemorrhage or perforation; R79.89 Other specified abnormal findings of blood chemistry; I11.0 Hypertensive heart disease with heart failure; I50.9 Heart failure, unspecified; M89.49 Other hypertrophic osteoarthropathy, multiple sites; D51.8 Other vitamin B12 deficiency anemias; W06.XXXA Fall from bed, initial encounter; Y92.002 Bathroom of unspecified non-institutional (private) residence as the place of occurrence of the external cause
CPT/HCPCS: 71045; 80053; 82947; 83605; 83735; 83880; 84443; 84484; 84550; 85025; 85379; 85610; 85730; 93005; 93010; 96374; 96375; 99284; 99285-25; J1940; J3490

== ENCOUNTER 2024-01-24 12:47 | Emergency (ER) | payer MEDICARE, OTHER, MEDICAID ==
[2024-01-24 13:13] LABS: BASOPHILS ABSOLUTE AUTO 0.01 K/uL (0.00-0.20); BASOPHILS PERCENT AUTO 0.2 % (0.0-2.0); EOSINOPHILS ABSOLUTE AUTO 0.11 K/uL (0.00-0.50); EOSINOPHILS PERCENT AUTO 2.2 % (0.0-5.0); HEMOGLOBIN 12.4 g/dL (13.1-16.8); LYMPHOCYTES ABSOLUTE AUTO 1.29 K/uL (0.50-3.50); LYMPHOCYTES PERCENT AUTO 25.5 % (10.0-50.0); MEAN CORPUSCULAR HEMOGLOBIN 27.4 pg (28.2-33.3); MEAN CORPUSCULAR HGB CONC 31.8 g/dL (31.7-36.0); MEAN CORPUSCULAR VOLUME 86.1 fL (84.0-98.0); MONOCYTES ABSOLUTE AUTO 0.89 K/uL (0.00-1.00); MONOCYTES PERCENT AUTO 17.6 % (2.0-14.0); NEUTROPHILS ABSOLUTE AUTO 2.75 K/uL (1.40-7.00); NEUTROPHILS PERCENT AUTO 54.5 % (45.0-80.0); PLATELET COUNT,PLT 181 K/uL (150-350); RED BLOOD CELL COUNT 4.53 M/uL (4.33-5.41); RED CELL DISTRIBUTION WIDTH 18.2 % (11.2-14.1); WHITE BLOOD CELL COUNT,WBC 5.1 K/uL (4.0-10.2)
[2024-01-24 13:30] LABS: ALANINE AMINOTRANSFERASE,ALT 25 U/L (12-78); ALBUMIN 3.6 g/dL (3.4-5.0); ALKALINE PHOSPHATASE 80 IU/L (46-116); ASPARTATE AMNIOTRANSFERASE,AST 26 U/L (15-37); BILIRUBIN TOTAL 0.4 mg/dL (0.2-1.0); BLOOD UREA NITROGEN,BUN 16 mg/dL (7-18); CALCIUM 8.8 mg/dL (8.5-10.1); CHLORIDE,CL 102 mmol/L (98-107); GLUCOSE RANDOM 147 mg/dL (70-99); POTASSIUM,K 4.7 mmol/L (3.5-5.1); PROTEIN TOTAL,TP 7.2 g/dL (6.4-8.2); SODIUM,NA 140 mmol/L (136-145)
[2024-01-24 13:38] LABS: ESTIMATED GFR 62 mL/min (>=60)
[2024-01-24] MEDS: Acetaminophen 325 MG Tab PO ONE (15:16)
[2024-01-24] MEDS: traMADol 50 MG Tab PO ONE (15:17)
[2024-01-24] MEDS ORDERED: Naloxone 0.4 MG/ML SDV IVPUSH PRN (16:09)
[2024-01-24] MEDS: Ondansetron 4 MG/2 ML SDV IVPUSH ONE (16:14)
[2024-01-24] MEDS: Morphine 2 MG/ML SYRINGE IVPUSH ONE (16:14)
[2024-01-24] MEDS: Sodium Chloride 0.9% 10 ML Syringe FLUSH PRN (16:14)
[2024-01-24] MEDS: Diazepam 5 MG Tab PO ONE (17:52)
[2024-01-24] MEDS: fentaNYL 50 MCG/ML SDV IVPUSH ONE (17:54)
[2024-01-24] MEDS: HYDROmorphone 0.5 MG/0.5 ML Syringe IVPUSH ONE (18:50)
[2024-01-24] MEDS: Lidocaine 2% HCl 11 ML Jelly Filled Syringe TOP ONE (18:53)
[2024-01-24] MEDS: Take Home: oxyCODONE HCl 5 MG Tab, 5 Tab Pack PO ONE (20:26)
[2024-01-24 21:00] VITALS: BP 122/70; PULSE 77
[2024-01-25 12:16] LABS: APPEARANCE,URINE CLEAR (CLEAR); COLOR,URINE YELLOW (YELLOW); GLUCOSE,URINE >=1000 mg/dL (NEGATIVE); PROTEIN,URINE NEGATIVE (NEGATIVE)
[2024-01-25 12:17] LABS: BILIRUBIN,URINE NEGATIVE (NEGATIVE); KETONES,URINE NEGATIVE (NEGATIVE); LEUKOCYTE ESTERASE,URINE NEGATIVE (NEGATIVE); NITRITE,URINE NEGATIVE (NEGATIVE); OCCULT BLOOD,URINE NEGATIVE (NEGATIVE); UROBILINOGEN,URINE 0.2 E.U./dL (0.2-1.0)
== END 2024-01-24 20:53 ==
LOC: LL.ED 12:47
DX: S32.401A Unspecified fracture of right acetabulum, initial encounter for closed fracture (principal); S32.591A Other specified fracture of right pubis, initial encounter for closed fracture; I11.0 Hypertensive heart disease with heart failure; I50.9 Heart failure, unspecified; I25.10 Atherosclerotic heart disease of native coronary artery without angina pectoris; E78.00 Pure hypercholesterolemia, unspecified; K21.9 Gastro-esophageal reflux disease without esophagitis; Z79.4 Long term (current) use of insulin; Z79.899 Other long term (current) drug therapy; Z79.82 Long term (current) use of aspirin; Z79.84 Long term (current) use of oral hypoglycemic drugs; W19.XXXA Unspecified fall, initial encounter
CPT/HCPCS: 36415; 51702; 70450; 73700-RT; 80053; 81003; 85025; 94761; 96374; 96375; 99285-25; A9270-GY; J1170; J2270; J2405; J3010; J3490

== ENCOUNTER 2024-02-03 18:29 | Emergency (ER) | payer MEDICARE, OTHER, MEDICAID ==
[2024-02-03] MEDS: Sodium Chloride 0.9% 1,000 ML IV ONE ×2 (18:35→19:40)
[2024-02-03] MEDS ORDERED: Sodium Chloride 0.9% 10 ML Syringe FLUSH PRN (18:38)
[2024-02-03 18:47] LABS: BASOPHILS ABSOLUTE AUTO 0.03 K/uL (0.00-0.20); BASOPHILS PERCENT AUTO 0.1 % (0.0-2.0); HEMATOCRIT 41.8 % (39.0-49.0); HEMOGLOBIN 13.6 g/dL (13.1-16.8); LYMPHOCYTES ABSOLUTE AUTO 0.28 K/uL (0.50-3.50); LYMPHOCYTES PERCENT AUTO 1.2 % (10.0-50.0); MEAN CORPUSCULAR HEMOGLOBIN 27.9 pg (28.2-33.3); MEAN CORPUSCULAR HGB CONC 32.5 g/dL (31.7-36.0); MEAN CORPUSCULAR VOLUME 85.7 fL (84.0-98.0); MONOCYTES ABSOLUTE AUTO 0.57 K/uL (0.00-1.00); MONOCYTES PERCENT AUTO 2.4 % (2.0-14.0); NEUTROPHILS ABSOLUTE AUTO 22.75 K/uL (1.40-7.00); NEUTROPHILS PERCENT AUTO 96.3 % (45.0-80.0); PLATELET COUNT,PLT 174 K/uL (150-350); RED BLOOD CELL COUNT 4.88 M/uL (4.33-5.41); RED CELL DISTRIBUTION WIDTH 21.1 % (11.2-14.1); WHITE BLOOD CELL COUNT,WBC 23.6 K/uL (4.0-10.2)
[2024-02-03] MEDS: Diltiazem 25 MG/5 ML SDV ONE (18:49)
[2024-02-03] MEDS: cefTRIAXone 2 GM Vial IVPUSH STA (18:51)
[2024-02-03] MEDS: Albuterol/Ipratropium 3.0-0.5 MG/3 ML Neb Soln ONE (18:58)
[2024-02-03] MEDS: VANCOmycin 1.5 GM/300 ML 1.5 GM in Premix Bag 1 BAG IV ONE (19:00)
[2024-02-03] MEDS: Norepinephrine Bit/D5W Premix 250 ML IV SCH (19:01)
[2024-02-03 19:03] LABS: BILIRUBIN TOTAL 0.7 mg/dL (0.2-1.0); CALCIUM 9.5 mg/dL (8.5-10.1); CREATININE 2.27 mg/dL (0.51-1.17); EST CRCL DRUG DOSING (CG) 20.38 mL/min; POTASSIUM,K 3.6 mmol/L (3.5-5.1); PROTEIN TOTAL,TP 7.5 g/dL (6.4-8.2)
[2024-02-03 19:05] LABS: LACTIC ACID 5.1 mmol/L (0.4-2.0)
[2024-02-03 19:14] LABS: INR 1.1 (0.9-1.1); PROTHROMBIN TIME 11.2 SEC (9.0-11.1); PTT,PARTIAL THROMBOPLSTIN TIME 32.8 SEC (23.6-29.8)
[2024-02-03] MEDS: Norepinephrine Bit/D5W Premix 250 ML ONE (19:18)
[2024-02-03 19:25] LABS: APPEARANCE,URINE SLIGHTLY CLOUDY; BACTERIA,URINE MANY /HPF (NONE TO FEW); BILIRUBIN,URINE MODERATE (NEGATIVE); COLOR,URINE RED; GLUCOSE,URINE 500 mg/dL (NEGATIVE); KETONES,URINE 15 mg/dL (NEGATIVE); LEUKOCYTE ESTERASE,URINE LARGE (NEGATIVE); NITRITE,URINE NEGATIVE (NEGATIVE); OCCULT BLOOD,URINE LARGE (NEGATIVE); PROTEIN,URINE >=300 mg/dL (NEGATIVE); RBC,URINE PACKED /HPF; WBC,URINE 20-30 /HPF
[2024-02-03] MEDS ORDERED: Iopamidol 755 Mg/ML 100 ML Bottle IVPUSH STA (19:27)
[2024-02-03] MEDS ORDERED: Iopamidol 755 Mg/ML 100 ML Bottle ONE (19:28)
[2024-02-03 20:03] LABS: O2 DELIVERY DEVICE NASAL CANNULA; PCO2 VENOUS 31 mmHG (41-51)
[2024-02-03 20:04] LABS: BASE EXCESS VENOUS -5 mmol/L ((-2)-3); BICARBONATE,VENOUS 19 mmol/L (23-28); O2 SATURATION VENOUS 83 %; PO2 VENOUS 47 mmHG
[2024-02-03 20:08] VITALS: BP 87/61
[2024-02-03] MEDS: Digoxin 500 MCG/2 ML Amp IVPUSH ONE (20:14)
[2024-02-03 20:15] VITALS: PULSE 97
== END 2024-02-03 20:40 ==
LOC: LL.ED 18:29
DX: A41.9 Sepsis, unspecified organism (principal); R65.21 Severe sepsis with septic shock; I10 Essential (primary) hypertension; E78.00 Pure hypercholesterolemia, unspecified; E66.9 Obesity, unspecified; E11.9 Type 2 diabetes mellitus without complications; Z79.82 Long term (current) use of aspirin; Z79.84 Long term (current) use of oral hypoglycemic drugs; Z79.4 Long term (current) use of insulin; Z79.899 Other long term (current) drug therapy; Z90.49 Acquired absence of other specified parts of digestive tract; Z86.16 Personal history of COVID-19; Z68.31 Body mass index [BMI] 31.0-31.9, adult
CPT/HCPCS: 36415; 71045; 74018; 80053; 80162; 81001; 82803; 83605; 84145; 84484; 85025; 85379; 85610; 85730; 87040; 87077; 87086; 87088; 87186; 93005; 93010; 94761; 96365; 96366; 96368; 96375; 99284; 99285-25; J0696; J1160; J3372; J3490; J7030; J7620-GY